=== PATIENT | female | born 1980 | race Caucasian/White ===

== ENCOUNTER 2017-08-07 00:38 | Emergency (ER) | payer SELFPAY ==
[2017-08-07 00:53] VITALS: BP 144/80; PULSE 65; RESP 20; TEMP 97.9; O2SAT 100
--- NOTE | 2017-08-07 01:31 | C.PDOC ---
History Of Present Illness Patient presents to the ED with complaints of difficulty sleeping, feeling tired , dizziness, and dry mouth sensation since she took Benadryl at 4pm today. She denies fever, chills, nausea, or vomiting. Time Seen by Provider: 08/07/17 01:31 Chief Complaint (Nursing): Dizziness/Lightheaded History Per: Patient History/Exam Limitations: no limitations Onset/Duration Of Symptoms: Hrs Current Symptoms Are (Timing): Still Present Associated Symptoms Preceding Syncopal Episode: No Predromal Symptoms (Sudden Onset) Seizure Or Post-ictal Symptoms: None Fall Associated With With Symptoms: No Severity: Mild Pain Scale Rating Of: 4 Recent travel outside of the [place]: No Past Medical History Reviewed: Historical Data, Nursing Documentation, Vital Signs Vital Signs: Last Vital Signs Temp 97.9 F 08/07/17 00:47 Pulse 65 08/07/17 00:47 Resp 20 08/07/17 00:47 BP 144/80 08/07/17 00:47 Pulse Ox 100 08/07/17 01:43 Family History: States: Unknown Family Hx - Social History Hx Alcohol Use: No Hx Substance Use: No - Immunization History Hx Tetanus Toxoid Vaccination: No Hx Influenza Vaccination: No Hx Pneumococcal Vaccination: No Review Of Systems Constitutional: Positive for: Other (feeling tired ). Negative for: Fever, Chills ENT: Positive for: Other (dry mouth sensation ) Gastrointestinal: Negative for: Nausea, Vomiting Skin: Negative for: Rash Neurological: Positive for: Dizziness Physical Exam - Physical Exam Appears: Non-toxic, No Acute Distress Skin: Warm, Dry Head: Atraumatic Eye(s): bilateral: Normal Inspection, PERRL, EOMI Oral Mucosa: Moist Neck: Supple Chest: Symmetrical, No Deformity Cardiovascular: Rhythm Regular, No Murmur Respiratory: No Rales, No Rhonchi, No Wheezing, Other (Speaking in complete sentences ) Gastrointestinal/Abdominal: Soft, No Tenderness, No Distention, No Guarding, No Rebound Extremity: Normal ROM, No Tenderness Neurological/Psych: Oriented x3 Gait: Steady ED Course And Treatment O2 Sat by Pulse Oximetry: 100 (RA) Disposition Counseled Patient/Family Regarding: Studies Performed, Diagnosis, Need For Followup - Disposition Referrals: Lashonda Steele MD [Staff Provider] - Disposition: HOME/ ROUTINE Disposition Time: 01:31 Condition: FAIR Instructions: Insomnia (ED), Dry Mouth (ED) Forms: [employer] (Nauruan) - Clinical Impression Clinical Impression: Medication side effect - Scribe Statement The provider has reviewed the documentation as recorded by the Scribe Carly Walker All medical record entries made by the Scribe were at my direction and personally dictated by me. I have reviewed the chart and agree that the record accurately reflects my personal performance of the history, physical exam, medical decision making, and the department course for this patient. I have also personally directed, reviewed, and agree with the discharge instructions and disposition.
== END 2017-08-07 01:50 | disposition home or self-care (01) ==
LOC: C.ER 00:38
DX: R42 Dizziness and giddiness (principal); T45.0X5A Adverse effect of antiallergic and antiemetic drugs, initial encounter